=== PATIENT | male | born 1970 | race Asian ===

== ENCOUNTER 2020-06-17 19:53 | Emergency (ER) | payer OTHER ==
[~2020-06-17] VITALS: Ht 185.4 cm; Wt 73.2 kg
[2020-06-17 20:08] LABS: PLATELET COUNT 278 K/uL (142-355)
[2020-06-17 20:12] LABS: POTASSIUM 4.2 mmol/L (3.6-5.2)
[2020-06-17 21:15] VITALS: BP 146/95; TEMP 97.6
[2020-06-18] MEDS ORDERED: AMLODIPINE BESYLATE PO (01:03)
[2020-06-18] MEDS ORDERED: AMOXICILLIN250 M2 PO (01:06)
[2020-06-18] MEDS ORDERED: DIVA250T2 PO (01:10)
[2020-06-18] MEDS ORDERED: DIVA500T2 PO (01:11)
[2020-06-18] MEDS ORDERED: DONEPEZIL HYDROC5 M1 PO (01:13)
[2020-06-18] MEDS ORDERED: NEURONTIN 100M100 MG PO (01:15)
[2020-06-18] MEDS ORDERED: HALO5TAB10 PO (01:16)
[2020-06-18] MEDS ORDERED: LACTULOSE10 GM/151 PO (01:20)
[2020-06-18] MEDS ORDERED: LORA1TAB17 PO (01:22)
[2020-06-18] MEDS ORDERED: MEDROXYPR AC5 MG PO (01:24)
[2020-06-18] MEDS ORDERED: NUEDEXTA PO (01:28)
[2020-06-18] MEDS ORDERED: PROPRANOLOL20 MG PO (01:29)
[2020-06-18] MEDS ORDERED: QUET200T28 PO (01:31)
[2020-06-18] MEDS ORDERED: QUETIAPINE400 MG PO (01:33)
[2020-06-18] MEDS ORDERED: VITAMIN C 500 M1 TAB PO (01:34)
== END 2020-06-17 21:15 | disposition still patient (30) ==
LOC: ED 19:53
PROVIDERS: Hospitalist
DX: F32.3 Major depressive disorder, single episode, severe with psychotic features (principal); Z11.59 Encounter for screening for other viral diseases; Z04.6 Encounter for general psychiatric examination, requested by authority; F95.2 Tourette's disorder
CPT/HCPCS: 36415; 80053; 81000; 85027; 87635; 93005; 99285; G2023; U00003

== ENCOUNTER 2020-07-13 00:06 | Emergency (ER) | payer OTHER ==
[~2020-07-13] VITALS: Ht 182.9 cm; Wt 67.6 kg
[~2020-07-13 00:06] MED LIST: AMLODIPINE BESYLATE PO; AMOXICILLIN250 M2 PO; CHOL100034 PO; DIVA250T2 PO; DIVA500T2 PO; DONE5TAB PO; DONEPEZIL HYDROC5 M1 PO; HALO5TAB10 PO; LACTULOSE10 GM/151 PO; LORA1TAB17 PO; MEDROXYPR AC5 MG PO; NEURONTIN 100M100 MG PO; NUEDEXTA PO; PROPRANOLOL20 MG PO; QUET200T28 PO; QUET300T PO; QUETIAPINE400 MG PO; VITAMIN C 500 M1 TAB PO; ZIPR20CA PO
[2020-07-13 01:03] LABS: PLATELET COUNT 266 K/uL (142-355)
[2020-07-13 01:29] LABS: POTASSIUM 3.9 mmol/L (3.6-5.2)
[2020-07-13 02:05] VITALS: BP 143/88; TEMP 98.4
[2020-07-13] MEDS ORDERED: ZIPR20CA PO (02:41)
== END 2020-07-13 02:05 | disposition still patient (30) ==
LOC: ED 00:06
PROVIDERS: Emergency Medicine Emergency Medical Services
DX: F03.91 Unspecified dementia, unspecified severity, with behavioral disturbance (principal); Z11.59 Encounter for screening for other viral diseases; Z04.6 Encounter for general psychiatric examination, requested by authority
CPT/HCPCS: 36415; 80053; 81000; 85027; 87635; 93005; 99283; 99285; U0003

== ENCOUNTER 2020-08-18 21:59 | Emergency (ER) | payer OTHER ==
[~2020-08-18] VITALS: Ht 182.9 cm; Wt 72.1 kg
[~2020-08-18 21:59] MED LIST changes: +DIVA250T PO; +DIVALPROEX500 MG PO; +LACTSYP31 PO; +OXCARBAZEPIN300 MG PO
[2020-08-18 22:39] LABS: PLATELET COUNT 252 K/uL (142-355)
[2020-08-19 00:10] VITALS: BP 161/77; TEMP 98.7
[2020-08-19] MEDS ORDERED: HALO5TAB10 PO (03:11)
[2020-08-19] MEDS ORDERED: LORA1TAB17 PO (03:12)
[2020-08-19] MEDS ORDERED: QUET25TA2 PO (03:19)
[2020-08-19] MEDS ORDERED: QUETIAPINE400 MG PO (03:20)
[2020-08-19] MEDS ORDERED: DONEPEZIL HYDROC5 MG PO (03:23)
[2020-08-19] MEDS ORDERED: LACTULOSE10 GM/15 M PO (03:24)
[2020-08-19] MEDS ORDERED: QUETIAPINE200 MG PO (03:27)
[2020-08-19] MEDS ORDERED: NUEDEXTA PO (07:15)
== END 2020-08-19 00:10 | disposition other institution (70) ==
LOC: ED 21:59
PROVIDERS: Emergency Medicine
DX: F03.91 Unspecified dementia, unspecified severity, with behavioral disturbance (principal); Z11.59 Encounter for screening for other viral diseases; Z04.6 Encounter for general psychiatric examination, requested by authority
CPT/HCPCS: 36415; 80053; 81000; 85027; 87635; 93005; 99283; U0003